=== PATIENT | male | born 1945 | race Caucasian/White ===

== ENCOUNTER 2018-04-12 18:47 | Observation (INO) | payer OTHER ==
[~2018-04-12] VITALS: Ht 167.6 cm; Wt 96.3 kg
--- NOTE | ~2018-04-12 | EKG ---
[address] [address] ELECTROCARDIOGRAM REPORT Name: [address] Room #: 202-P [facility]..#: [id number] Admission: 04/12/18 Attend Phys: Nathan Piper MD Discharge: Date of : 41 Report #: [id number] THIS REPORT FOR: //name// [facility] ED Test Date: 2018-04-12 Test Time: 19:34:22 Pat Name: [address] Department: Room: [facility] Gender: M [employer] Supervisor: [email or web address] : 1945 Requested By: Pari Lorenzo Order Number: [id number] MD: Kishan Crystal Measurements Intervals [place] Rate: 72 P: 57 [place]: 193 QRS: 50 QRSD: 95 T: 62 QT: 412 QTc: 451 Interpretive Statements Sinus rhythm No significant abnormality Compared to ECG 07/21/2016 13:18:31 T-wave abnormality no longer present Electronically Signed On 04-13-2018 9:48:06 [employer] INVESTIGATOR by Kishan Crystal [email or web address] <ELECTRONICALLY SIGNED> By: Kishan Crystal MD, [facility] 04/13/18 [id number] Kishan Crystal MD, [facility] /EPI
[~2018-04-12 18:47] MED LIST: ADDERALL 5 MG TA5 M1 PO; ANTIVERT25 MG PO; ARICEPT 5 MG TAB5 MG PO; CLARITIN10 MG PO; COLACE100 MG PO; COZAAR 25 MG TA25 M2 PO; CYCLOBENZAPRINE5 MG PO; FLOMAX0.4 MG PO; IRON325 PO; METFORMIN HCL500 MG PO; MOBIC15 MG PO; MUCINEX TA600 MG/TA2 PO; NEURONTIN 300300 M1 PO; ONGLYZA5 MG PO; PRILOSEC 20 MG20 MG PO; PROPRANOLOL 1010 MG PO; REMERON15 MG PO; REQUIP 1 MG TABL1 M1 PO; SERTRALINE HCL50 MG PO; TROSPIUM CHLORI20 MG PO; VITAMIN D3400 UNIT PO
[2018-04-12 18:48] VITALS: BP 89/48
[2018-04-12 19:14] LABS: ABSOLUTE NEUTROPHILS 7.3 thou/uL (1.4-8.2); BASOPHILS 0.7 % (0.0-2.0); EOSINOPHILS 2.4 % (0.0-3.0); HEMATOCRIT 39.6 % (42.0-52.0); HEMOGLOBIN 14.1 gm/dL (14.0-18.0); LYMPHOCYTES 11.6 % (24.0-44.0); MCH 29.7 pg (26.0-34.0); MCHC 35.5 g/dL (28.0-37.0); MCV 83.5 fL (80.0-100.0); MONOCYTES 10.4 % (1.0-8.0); PLATELET COUNT 249 thou/uL (150-400); POLYS 74.9 % (36.0-66.0); RBC 4.74 mil/uL (4.50-6.00); RDW 13.8 % (10.5-14.5); WBC 9.8 thou/uL (4.0-11.0)
[2018-04-12 19:22] LABS: ANION GAP 6 mmol/L (7-16); BUN 35 mg/dL (7-18); CALCIUM 9.6 mg/dL (8.5-10.1); CHLORIDE 101 mmol/L (98-107); CO2 26 mmol/L (21-32); CREATININE 1.8 mg/dL (0.7-1.3); GLUCOSE 59 mg/dL (74-106); POTASSIUM 3.5 mmol/L (3.5-5.1); SODIUM 133 mmol/L (136-145)
[2018-04-12 19:31] LABS: ALBUMIN 3.9 g/dL (3.4-5.0); SGOT 27 U/L (15-37); SGPT 54 U/L (30-65); TOTAL BILIRUBIN 0.3 mg/dL (<0.1-1.0); TOTAL PROTEIN 7.8 g/dL (6.4-8.2); TROPONIN-I <0.06 ng/mL (<0.06)
[2018-04-12] MEDS ORDERED: UNICOMPLEX M TA1 TA1 PO (19:34)
[2018-04-12] MEDS ORDERED: B12INJ IM (19:35)
[2018-04-12] MEDS ORDERED: ATORVASTATIN CA40 MG PO (19:37)
[2018-04-12] MEDS ORDERED: VITAMIN D1000 UNI1 PO (19:37)
[2018-04-12] MEDS ORDERED: REQUIP 1 MG TABL1 M1 PO (19:38)
[2018-04-12] MEDS ORDERED: NOVOLOG100 UNIT/1 SUBQ (19:39)
[2018-04-12] MEDS ORDERED: LEVEMIR SUBQ (19:39)
[2018-04-12] MEDS ORDERED: COREG12.5 MG PO (19:39)
[2018-04-12 19:44] LABS: BE(vivo) -2.6 mmol/L (-2 to +3); HCO3 22.9 mmol/L (22.0-26.0); PCO2 42.1 mmHg (35.0-45.0); PO2 67.1 mmHg (80.0-100.0); pH 7.353 (7.360-7.450); sO2 92.5 % (92.0-98.0)
[2018-04-12 21:30] VITALS: BP 89/45
[2018-04-12 23:02] VITALS: BP 125/67
[2018-04-13 05:05] LABS: CHOLESTEROL 199 mg/dL (<200); HDL CHOLESTEROL 27 mg/dL (>40); LDL CHOLESTEROL 103 mg/dL (<100); TC:HDL 7.4 Ratio (Not establshd); TRIGLYCERIDE 347 mg/dL (<150); VLDL 69 mg/dL (<40)
[2018-04-13 05:06] LABS: CALCIUM 8.6 mg/dL (8.5-10.1); CREATININE 1.4 mg/dL (0.7-1.3); POTASSIUM 4.1 mmol/L (3.5-5.1)
[2018-04-13 05:13] VITALS: BP 151/89
[2018-04-13 07:20] VITALS: BP 139/73
[2018-04-13 11:05] VITALS: BP 121/60
[2018-04-13 15:50] VITALS: BP 130/76
[2018-04-13 19:33] VITALS: BP 148/7
[2018-04-13 19:43] LABS: URINE BILIRUBIN NEGATIVE (Negative); URINE BLOOD NEGATIVE (Negative); URINE CLARITY CLEAR; URINE COLOR YELLOW; URINE GLUCOSE-RANDOM* 1+ (Negative); URINE KETONES NEGATIVE (Negative); URINE NITRITE-REFLEX NEGATIVE (Negative); URINE PROTEIN (DIPSTICK) NEGATIVE (Negative); URINE SPECIFIC GRAVITY <= 1.005 (1.005-1.035); URINE UROBILINOGEN 0.2 E.U./dl (0.2-1.0)
[2018-04-13 19:44] LABS: URINE LEUKOCYTES-REFLEX TRACE (Negative)
[2018-04-13 19:52] LABS: AMP/METHAMP Negative (Negative); BARBITURATES Negative (Negative); BENZODIAZEPINES Negative (Negative); COCAINE Negative (Negative); METHADONE Negative (Negative); OPIATES Negative (Negative); PCP Negative (Negative)
[2018-04-14 01:10] LABS: GLYCOHEMOGLOBIN (HGB A1C) 8.5 % (4.8-5.6)
[2018-04-14 04:39] VITALS: BP 134/61
[2018-04-14 06:50] LABS: ALBUMIN 3.3 g/dL (3.4-5.0); CALCIUM 9.3 mg/dL (8.5-10.1); CREATININE 1.1 mg/dL (0.7-1.3); PHOSPHORUS 3.1 mg/dL (2.5-4.9); POTASSIUM 4.8 mmol/L (3.5-5.1)
[2018-04-14 07:20] VITALS: BP 132/61
[2018-04-14] MEDS ORDERED: NOVOLOG100 UNIT/1 SUBQ (09:04)
[2018-04-14] MEDS ORDERED: LEVEMIR SUBQ (09:05)
[2018-04-14 11:20] VITALS: BP 120/66
[2018-04-14 15:55] VITALS: BP 120/66
== END 2018-04-14 16:30 | disposition home or self-care (01) ==
LOC: ER 18:47 → 2N 20:28 → EROBS 20:28 → 2N 22:33
PROVIDERS: Emergency Medicine; Hospitalist; Nurse Practitioner Family
DX: E11.649 Type 2 diabetes mellitus with hypoglycemia without coma (principal); E11.40 Type 2 diabetes mellitus with diabetic neuropathy, unspecified; G93.40 Encephalopathy, unspecified; N17.9 Acute kidney failure, unspecified; R51 Headache; K21.9 Gastro-esophageal reflux disease without esophagitis; E78.5 Hyperlipidemia, unspecified; I12.9 Hypertensive chronic kidney disease with stage 1 through stage 4 chronic kidney disease, or unspecified chronic kidney disease; N18.9 Chronic kidney disease, unspecified; G47.33 Obstructive sleep apnea (adult) (pediatric); C85.90 Non-Hodgkin lymphoma, unspecified, unspecified site; D64.9 Anemia, unspecified; G25.81 Restless legs syndrome; G47.419 Narcolepsy without cataplexy; G20 Parkinson's disease; F32.9 Major depressive disorder, single episode, unspecified; Z79.899 Other long term (current) drug therapy; Z92.21 Personal history of antineoplastic chemotherapy; Z77.098 Contact with and (suspected) exposure to other hazardous, chiefly nonmedicinal, chemicals; Z79.4 Long term (current) use of insulin
CPT/HCPCS: 10081